=== PATIENT | male | born 1985 | race Caucasian/White ===

== ENCOUNTER 2018-05-05 20:26 | Inpatient (IN) | payer OTHER ==
[2018-05-05] MEDS ORDERED: HYDROmorphONE/DILAUDID 2 MG/ML INJ IVP ONE (20:34)
[2018-05-05] MEDS ORDERED: ONDANSETRON 4 MG/2 ML VIAL IVP ONE (20:34)
[2018-05-05] MEDS ORDERED: HYDROmorphONE/DILAUDID 1 MG/ML INJ ONE (20:43)
[2018-05-05] MEDS ORDERED: NS 1,000 ML IV ONE (20:50)
[2018-05-05] MEDS ORDERED: HYDROmorphONE/DILAUDID 1 MG/ML INJ IVP ONE (20:51)
[2018-05-05] MEDS ORDERED: fentaNYL 100 MCG/2 ML INJ IVP ONE (21:16)
[2018-05-05] MEDS ORDERED: fentaNYL 100 MCG/2 ML INJ ONE ×2 (21:19→22:43)
--- NOTE | 2018-05-05 21:31 | EDPHY ---
H & P Stated Complaint: fell while hiking [facility], felt pop in right lower leg, unable to walk - Personal History Current Tetanus/Diphtheria Vaccine: Yes Current Tetanus Diphtheria and Acellular Pertussis (TDAP): Yes - Medical/Surgical History Hx Asthma: No Hx Chronic Respiratory Disease: No Hx Diabetes: No Hx Cardiac Disease: No Hx Renal Disease: No Hx Cirrhosis: No Hx Alcoholism: No Hx HIV/AIDS: No Hx Splenectomy or Spleen Trauma: No Other PMH: none - Social History Smoking Status: Never smoked Time Seen by Provider: 05/05/18 20:34 HPI/ROS: CHIEF COMPLAINT: Right tibia and fibula pain HISTORY OF PRESENT ILLNESS: 33-year-old male generally healthy arrives via ambulance, not a trauma activation, complaining of acute right tibia and fibula pain. He was hiking earlier today [facility], slipped on ice felt immediate pain. Unable to bear weight was extricated via mountain rescue services. Due to the location and current ice and snowing conditions this extrication took several hours. He was kept warm during this process. Only complaint is right tibia and fibula pain. There is no fall from height. He fell while he was hiking and slipped. No calcaneus or foot pain. No paresthesia. No straddle injury. No head injury. No back pain or injury. No pelvic pain or injury. Last oral intake was dinner last evening PRIMARY CARE PROVIDER: REVIEW OF SYSTEMS: 10 systems reviewed and negative with the exception of the elements mentioned in the history of present illness PAST MEDICAL/SURGICAL HISTORY: no anticoagulant use, no relevant medical/ surgical history SOCIAL HISTORY: denies alcohol use at time of incident PHYSICAL EXAM 1) GENERAL: Well-developed, well-nourished, alert and oriented. Appears uncomfortable. Answering questions appropriately. 2) HEAD: Normocephalic, atraumatic 3) HEENT: Pupils equal, round, reactive to light bilaterally. Negative Horners. Nasopharynx, oropharynx, clear. No deformity or angulation of nose. No septal hematoma. No rhinorrhea. No oral trauma. Ears bilaterally with normal tympanic membranes. No hemotympanum. No fluid or blood in the external auditory canal. No raccoon eyes. No Simental sign. Teeth are normally aligned with no gross malocclusion, TMJ bilaterally nontender, facial bones nontender including the zygomatic arch, maxilla mandible. 4) NECK: No cervical collar is on. Posterior cervical spine is nontender, no stepoff, no effusion. Full range of motion which does not elicit any midline cervical spine pain, no posterior midline tenderness, no step-off. 5) LUNGS: Clear to auscultation bilaterally, no wheezes, no rhonchi, no retractions. No obvious signs of trauma. No chest wall pain. No flaring, no grunting. Moving symmetrically. No crepitus. 6) HEART: [Regular rate and rhythm, 7) ABDOMEN: No guarding, no rebound, no focal tenderness, no peritoneal signs, no signs of trauma, no ecchymosis 8) MUSCULOSKELETAL: Right lower extremity: Noted deformity to the distal tibia with intact skin. DP and PT pulses are present and brisk with brisk capillary refill. Foot calcaneus and ankle nontender. Proximal fibula is tender to palpation. Soft compartments throughout. Intact skin. Soft compartments throughout. Knee nontender. Femur nontender Moving all extremities, no focal areas of tenderness, no obvious trauma. 9) BACK: No midline vertebral tenderness, no fluctuance, no step-off, no obvious trauma, no visual or palpable abnormality. 10) SKIN: No laceration. No abrasion DIFFERENTIAL DIAGNOSIS: In no particular order including but not limited to fracture, sprain, strain, dislocation, compartment syndrome (Holden,Satinder Shannan) Constitutional: Initial Vital Signs Temperature (C) 36.7 C 05/05/18 20:41 Heart Rate 81 05/05/18 20:41 Respiratory Rate 16 05/05/18 20:41 Blood Pressure 123/74 H 05/05/18 20:41 O2 Sat (%) 98 05/05/18 20:41 O2 Delivery Mode Room Air Allergies/Adverse Reactions: No Known Allergies Allergy (Unverified 05/05/18 20:45) Home Medications: Medication Instructions Recorded Rohto Eye Drops 1 drop EACHEYE PRN PRN 05/05/18 Medical Decision Making - Diagnostics Imaging Results: Imaging Impressions Ankle X-Ray 05/05/18 20:41 Impression: 1. Oblique fracture distal right tibial shaft with posterior lateral displacement and proximal displacement distal aspect but no angulation. 2. Oblique nondisplaced fracture proximal shaft right fibula. Tibia/Fibula X-Ray 05/05/18 20:41 Impression: 1. Oblique fracture distal right tibial shaft with posterior lateral displacement and proximal displacement distal aspect but no angulation. 2. Oblique nondisplaced fracture proximal shaft right fibula. Procedures: Procedure: Splint A posterior long leg Ortho Glass splint was applied by ER ict help desk technician. After application of the splint I returned and re-examined the patient. The splint was adequately immobilizing the joint and distal to the splint the patient's circulation and sensation were intact. Patient shows no signs of compartment syndrome. (Satinder Hatch) ED Course/Re-evaluation: Patient greeted on arrival. Clothing was wet and cold which was changed out upon arrival. Patient has no break in skin. He is neurovascular intact no evidence compartment syndrome upon arrival. Will obtain x-rays of the tibia and fibula. 9:30 p.m.: Consultation with MARGO Solorio with Dr. Joshua Dickey reviewed the patient's images and call me back. Patient remains NPO since dinner last evening. 9:38 p.m.: Consultation with MARGO Solorio, Dr. Joshua Dickey will take the patient operating room this evening.. Patient was also seen exam by Dr. Ro Mcdaniel in the ER. He remains neurovascularly intact. (Satinder Hatch) Other Provider: The patient was evaluated and managed by the Physician Computer Bookkeeper. I discussed the patient's presentation and course with the midlevel provider with them and agree with the evaluation. My co-signature indicates that I have reviewed this chart and I agree with the findings and plan of care as documented. I am the secondary supervising physician. (Ro Mcdaniel) - Data Points Laboratory Results: Laboratory Results 05/05/18 21:48 05/05/18 21:48 05/05/18 05/05/18 05/05/18 21:48 21:48 21:48 WBC 15.88 10^3/uL H 10^3/uL (3.80-9.50) RBC 4.52 10^6/uL 10^6/uL (4.40-6.38) Hgb 13.9 g/dL g/dL (13.7-17.5) Hct 42.0 % % (40.0-51.0) MCV 92.9 fL fL (81.5-99.8) MCH 30.8 pg pg (27.9-34.1) MCHC 33.1 g/dL g/dL (32.4-36.7) RDW 12.5 % % (11.5-15.2) Plt Count 295 10^3/uL 10^3/uL (150-400) MPV 9.4 fL fL (8.7-11.7) Neut % (Auto) 78.8 % H % (39.3-74.2) Lymph % (Auto) 13.2 % L % (15.0-45.0) Tama % (Auto) 6.9 % % (4.5-13.0) Eos % (Auto) 0.2 % L % (0.6-7.6) Baso % (Auto) 0.3 % % (0.3-1.7) Nucleat RBC Rel Count 0.0 % % (0.0-0.2) Absolute Neuts (auto) 12.53 10^3/uL H 10^3/uL (1.70-6.50) Absolute Lymphs (auto) 2.09 10^3/uL 10^3/uL (1.00-3.00) Absolute Monos (auto) 1.09 10^3/uL H 10^3/uL (0.30-0.80) Absolute Eos (auto) 0.03 10^3/uL 10^3/uL (0.03-0.40) Absolute Basos (auto) 0.04 10^3/uL 10^3/uL (0.02-0.10) Absolute Nucleated RBC 0.00 10^3/uL 10^3/uL (0-0.01) Immature Gran % 0.6 % % (0.0-1.1) Immature Gran # 0.10 10^3/uL 10^3/uL (0.00-0.10) PT 14.7 SEC SEC (12.0-15.0) INR 1.13 (0.83-1.16) APTT 25.9 SEC SEC (23.0-38.0) Sodium 140 mEq/L mEq/L (135-145) Potassium 3.9 mEq/L mEq/L (3.5-5.2) Chloride 109 mEq/L mEq/L (97-110) Carbon Dioxide 24 mEq/l mEq/l (22-31) Anion Gap 7 mEq/L mEq/L (6-14) BUN 16 mg/dL mg/dL (7-23) Creatinine 0.9 mg/dL mg/dL (0.7-1.3) Estimated GFR > 60 Glucose 85 mg/dL mg/dL (70-100) Calcium 8.7 mg/dL mg/dL (8.5-10.4) Medications Given: Discontinued Medications Fentanyl (Sublimaze) 100 mcg IVP EDNOW ONE Stop: 05/05/18 21:17 Last Admin: 05/05/18 21:20 Dose: 100 mcg Hydromorphone HCl (Dilaudid) 1 mg IVP EDNOW ONE Stop: 05/05/18 20:35 Last Admin: 05/05/18 20:35 Dose: 1 mg Hydromorphone HCl (Dilaudid) 1 mg IVP EDNOW ONE Stop: 05/05/18 20:52 Last Admin: 05/05/18 20:56 Dose: 1 mg Sodium Chloride (Ns) 1,000 mls @ 0 mls/hr IV ONCE ONE PRN Reason: Wide Open Stop: 05/05/18 20:51 Last Admin: 05/05/18 21:37 Dose: Not Given Cefazolin Sodium/Dextrose (Ancef) 100 mls @ 200 mls/hr IV EDNOW ONE PRN Reason: Protocol Stop: 05/05/18 22:34 Last Admin: 05/05/18 22:13 Dose: 100 mls Ondansetron HCl (Zofran) 4 mg IVP EDNOW ONE Stop: 05/05/18 20:35 Last Admin: 05/05/18 20:35 Dose: 4 mg Departure - Departure Disposition: [facility] Inpatient Acute Clinical Impression: Hiking on level or elevated terrain Fracture of right tibia and fibula Qualifiers: Encounter type: initial encounter Fracture type: closed Qualified Code(s): S82.201A - Unspecified fracture of shaft of right tibia, initial encounter for closed fracture Fall from slipping on ice Qualifiers: Encounter type: initial encounter Qualified Code(s): W00.9XXA - Unspecified fall due to ice and snow, initial encounter Condition: Fair
[2018-05-05 22:05] LABS: PLATELET COUNT 295 10^3/uL (150-400)
[2018-05-05] MEDS ORDERED: ceFAZolin 2 GM/DEXTROSE 100 ML IV ONE (22:05)
--- NOTE | 2018-05-05 22:09 | PDCONSULT ---
Grid Trimmer Note: ORTHOPEDIC SURGERY CONSULT NOTE SUBJECTIVE: Patient presented to [facility] ER after slipping and falling while hiking, followed by immediate pain and inability to bear weight. X-rays showed displaced right distal tibia fracture with proximal right fibula fracture. He states he is in quite a bit of pain. He denies any numbness or tingling. He is overall healthy individual with no noted drug allergies, and no major medical issues noted to me. OBJECTIVE: RLE No open wounds. Palpable tibia deformity. Compartments soft. Pain to palpation over proximal fibula and distal tibia. Wiggles toes well. Distal neurovasculature intact. ASSESSMENT: Right, Distal Tibia fracture, displaced Right, Proximal fibula fracture, displaced PLAN: Admit patient to ortho service ORIF Right distal Tibia tonight (as soon as OR available) Surgery was discussed with patient in detail including risks and benefits. Consent for surgery was signed by patient. Dr. Dickey has seen patient and will be the surgeon. Osmin Bojorquez PA-C
[2018-05-05] MEDS ORDERED: D5W 1/2 NS 1,000 ML IV SCH (22:15)
[2018-05-05] MEDS ORDERED: BUPIVACAINE 0.5% 30 ML SDV ONE (22:16)
[2018-05-05 22:19] LABS: INR 1.13 (0.83-1.16); PROTIME(PATIENT) 14.7 SEC (12.0-15.0)
[2018-05-05] MEDS ORDERED: ROCURONIUM 100 MG/10 ML VIAL ONE (22:44)
[2018-05-05] MEDS ORDERED: PROPOFOL 200 MG/20 ML VIAL ONE (22:44)
[2018-05-05] MEDS ORDERED: DEXAMETHASONE 4 MG/ML VIAL ONE (22:46)
--- NOTE | 2018-05-05 22:47 | PDANEPAE ---
ANE Past Medical History - Cardiovascular History Hx Hypertension: No Hx Arrhythmias: No Hx Chest Pain: No Hx Coronary Artery / Peripheral Vascular Disease: No Hx CHF / Valvular Disease: No Hx Palpitations: No - Pulmonary History Hx COPD: No Hx Asthma/Reactive Airway Disease: No Hx Recent Upper Respiratory Infection: No Hx Oxygen in Use at Home: No Hx Sleep Apnea: No - Endocrine History Hx Diabetes: No Hypothyroid: No Hyperthyroid: No Obesity: no - GI History GERD: no Hx Gastrointestinal Disorders: No - Surgical History Prior Surgeries: wisdom teeth ANE Review of Systems Review of Systems: - Exercise capacity Exercise capacity: >=4 METS ANE Patient History - Allergies Allergies/Adverse Reactions: No Known Allergies Allergy (Unverified 05/05/18 20:45) - Home Medications Home Medications: Rohto Eye Drops 1 drop EACHEYE PRN PRN 05/05/18 [Last Taken Unknown] - NPO status NPO Since - Liquids (Date): 05/05/18 NPO Since - Liquids (Time): 15:00 NPO Since - Solids (Date): 05/04/18 NPO Since - Solids (Time): 19:00 - Anes Hx Anes Hx: no prior problems - Smoking Hx Smoking Status: Never smoked - Alcohol Use Alcohol Use: Occasionally - Family Anes Hx Family Anes Hx: neg - N/A ANE Labs/Vital Signs - Labs Result Diagrams: 05/05/18 21:48 05/05/18 21:48 - Vital Signs Blood Pressure: 101/68 Heart Rate: 86 Respiratory Rate: 16 O2 Sat (%): 97 Height: 175.26 cm Weight: 81.647 kg ANE Physical Exam - Airway Neck exam: FROM Mallampati Score: Class 2 Mouth exam: normal dental/mouth exam, pool - Pulmonary Pulmonary: no respiratory distress, no rales or rhonchi, clear to auscultation - Cardiovascular Cardiovascular: regular rate and rhythym, no murmur, rub, or gallop - ASA Status ASA Status: I, E ANE Anesthesia Plan Anesthesia Plan: general endotracheal anesthesia Total IV Anesthesia: No
[2018-05-05] MEDS ORDERED: LIDOCAINE 2% 5 ML SDV ONE (22:50)
[2018-05-05] MEDS ORDERED: KETOROLAC 30 MG/1 ML SDV ONE (22:50)
[2018-05-05] MEDS ORDERED: LR 500 ML IV PRN (23:08)
[2018-05-05] MEDS ORDERED: ONDANSETRON 4 MG/2 ML VIAL IVP PRN (23:08)
[2018-05-05] MEDS ORDERED: ACETAMINOPHEN 500 MG TAB PO PRN (23:08)
[2018-05-05] MEDS ORDERED: HYDROmorphONE/DILAUDID 2 MG/ML INJ IVP PRN (23:08)
[2018-05-05] MEDS ORDERED: PROMETHAZINE HCL 25 MG/ML INJ IVP PRN (23:08)
[2018-05-05] MEDS ORDERED: PHENYLEPHRINE HCL 100 MCG/ML SYR IVP PRN (23:08)
[2018-05-05] MEDS ORDERED: oxyCODONE IR 5 MG TAB PO PRN (23:08)
[2018-05-05] MEDS ORDERED: fentaNYL 100 MCG/2 ML INJ IVP PRN (23:08)
[2018-05-05] MEDS ORDERED: MEPERIDINE 25 MG/0.5 ML AMP IVP PRN (23:08)
[2018-05-05] MEDS ORDERED: HYDROCODONE/APAP 5/325 TAB PO PRN (23:08)
[2018-05-05] MEDS ORDERED: NALOXONE HCL 0.4 MG/ML INJ IVP PRN (23:08)
[2018-05-06] MEDS ORDERED: SUGAMMADEX SODIUM 200 MG/2 ML VIAL IVP ONE (00:12)
[2018-05-06] MEDS ORDERED: fentaNYL 100 MCG/2 ML INJ ONE (00:14)
[2018-05-06] MEDS ORDERED: PROMETHAZINE HCL 25 MG/ML INJ IVP PRN (00:40)
[2018-05-06] MEDS ORDERED: ONDANSETRON DISINTEGRATING 4 MG TAB PO PRN (00:40)
[2018-05-06] MEDS ORDERED: TEMAZEPAM 15 MG CAP PO PRN (00:40)
[2018-05-06] MEDS ORDERED: ONDANSETRON 4 MG/2 ML VIAL IVP PRN (00:40)
[2018-05-06] MEDS ORDERED: PROMETHAZINE HCL 25 MG SUPPR PR PRN (00:40)
[2018-05-06] MEDS ORDERED: CYCLOBENZAPRINE 10 MG TAB PO PRN (00:40)
[2018-05-06] MEDS ORDERED: diphenhydrAMINE 25 MG CAP PO PRN (00:40)
[2018-05-06] MEDS ORDERED: DIPHENOXYLATE/ATROPINE LOMOTIL 1 TAB PO PRN (00:40)
[2018-05-06] MEDS ORDERED: METOCLOPRAMIDE 10 MG/2 ML VIAL IVP PRN (00:40)
[2018-05-06] MEDS ORDERED: ceFAZolin 2 GM/DEXTROSE 100 ML IV ONE (00:57)
[2018-05-06] MEDS ORDERED: D5W 1/2 NS 1,000 ML IV SCH (00:57)
[2018-05-06] MEDS ORDERED: LR 1,000 ML IV SCH (01:00)
--- NOTE | 2018-05-06 01:29 | POSTANESTH ---
Post Anesthetic Evaluation Cardiovascular Status: Normal, Stable Respiratory Status: Normal, Stable Level of Consciousness/Mental Status: Can Participate in Eval Pain Control: Adequate, Prn Tx Ordered Nausea/Vomiting Control: Adequate, Prn Tx Ordered Complications Possibly Related to Anesthesia: None Noted
[2018-05-06] MEDS: oxyCODONE IR 5 MG TAB PO PRN ×3 (02:26→14:40)
--- NOTE | 2018-05-06 05:56 | GOP ---
DATE OF OPERATION: 05/06/2018 SURGEON: Joshua Dickey MD MANAGER STRATEGIC: Osmin Bojorquez. ANESTHESIA: General. PREOPERATIVE DIAGNOSIS: Right tibia and fibular shaft fractures. POSTOPERATIVE DIAGNOSIS: Right tibia and fibular shaft fractures. PROCEDURE PERFORMED: Open reduction, internal fixation, right tibial shaft fracture. FINDINGS: DESCRIPTION OF PROCEDURE: The patient was taken to the operating room, administered general anesthes ia, placed in supine position. The right lower extremity was prepped and draped in normal sterile fa shion. Esmarch exam was performed followed by elevation of thigh cuff to 275 mmHg pressure. Anterior incision was made 1 cm lateral to the tibial crest. It was carried through dermal and subcu taneous tissues. Sharp dissection performed down to the fascia; this was divided. The anterior tibi amita was reflected off the tibia. The fracture was exposed; it was thoroughly lavaged. The bone end s were cleaned up. We then reapproximated the fracture and secured it with a tenaculum clamp. The plate was then bent u sing the plate benders to fit the anterior lateral aspect of the tibia. We elected to use a large DC P-type plate. The plate was secured with 4.5 cortical screws. An interfragmentary screw was used ac ross the fracture line to get anatomic fixation. This was overdrilled with a 4.5 proximal cortex dri ll and a 3.2 distal cortex drill. It was tapped and then the screw was placed. The remaining screws were then placed proximally and distally. Irrigation performed with normal saline. The incision was closed with 2-0 Vicryl in the subcutaneous tissues, followed by 3-0 Ethilon in the d ermis. A sterile compression dressing was applied, followed by a posterior splint. The patient tolerated the procedure well and was transferred back to the recovery room in stable cond ition. No operative complications. COMPLICATIONS: None. /[id number]/MODL
[2018-05-06] MEDS ORDERED: ceFAZolin 2 GM/DEXTROSE 100 ML IV SCH (06:00)
[2018-05-06] MEDS: ACETAMINOPHEN 325 MG TAB PO SCH ×2 (06:03→11:53)
[2018-05-06] MEDS: KETOROLAC 15 MG/1 ML SDV IVP SCH ×2 (06:41→11:53)
--- NOTE | 2018-05-06 07:08 | PDMN ---
Medical Necessity Medical necessity: Pt meets inpt criteria per MD order and [id number], Tibia/ Fibula Shaft Fracture, Closed or Open Reduction. 33 y/o presented to ED after falling while hiking w/displaced R distal tibia fracture, displaced R proximal fibula fracture, required surgical intervention: admitted for ORIF, R tibial shaft fracture and post-op care.
--- NOTE | 2018-05-06 08:28 | SOAPPROG ---
SOAP Progress Note Assessment/Plan: Assessment: POD #1 s/p Right Distal Tibia ORIF Plan: He appears to be doing well following surgery. Pain has been well controlled with current medications. He will meet with PT/OT today and Case Management. Use of Crutches with No Weight Bearing RLE He will keep cast/dressing applied until seen for his post op appointment. Drain can be removed today. DVT Prophylaxis: EC ASA 325mg BID for 2 weeks Discharge: Possible tonight 05/06 if progressing well with PT/OT 05/06/18 08:25 Subjective: States his pain is 4/10 currently. Denies any SOB, CP, N/V currently. Objective: Vital Signs Temp Pulse Resp BP Pulse Ox 36.9 C 68 14 83/48 L 91 L 05/06/18 07:46 05/06/18 07:46 05/06/18 07:46 05/06/18 07:46 05/06/18 07:46 05/05/18 05/06/18 05/07/18 05:59 05:59 05:59 Intake Total 2009 160 Output Total 10 80 Balance 1999 80 PT 14.7 SEC (12.0-15.0) 05/05/18 21:48 INR 1.13 (0.83-1.16) 05/05/18 21:48 PHYSICAL EXAM RLE Splint/Dressing intact, clean and dry wiggles toes well. Distal Neurovasculature intact. Drain present with 20cc blood present. - Pending Discharge Pending Discharge Within 24 Hours: Yes Pending Discharge Date: 05/06/18 Pending Discharge Time: 18:00 (He may discharge tonight if progressing well) ICD10 Worksheet Patient Problems: Problems Problem Status Onset Fall from slipping on ice Acute Fracture of right tibia and fibula Acute Hiking on level or elevated terrain Acute
--- NOTE | 2018-05-06 08:40 | PDDCSUM ---
Discharge Summary Discharge Summary: DISCHARGE SUMMARY Orthopedic Surgery Admission Date: 05/05/18 Discharge date: 05/06/18 Admission Diagnosis: Right Distal Tibia Fracture, displaced. RIght Proximal Fibula Fracture Primary Procedure: ORIF Right Distal Tibia Surgeon: Dr. Joshua Dickey MD HOSPITAL COURSE Patient did very well following surgery with no medical issues during stay. He advanced to Oral food/water without issue. Pain has been well controlled with medication. DVT prophylaxis through mobilization, Aspirin, and SCDs. Splint/ Dressing was checked daily without issue. He met with PT/OT during his stay. MEDICATIONS: Oxycodone IR for pain EC Aspirin 325mg daily for DVT prophylaxis. No current home medications reported. FOLLOW-UP He will follow-up in 10-14 days at [facility] for re-evaluation. He will call clinic with any issues or concerns. Osmin Bojorquez PA-C for attending Dr. Dickey (Orthopedic Surgeon).
[2018-05-06] MEDS ORDERED: ASPIRIN EC 325 MG TAB PO SCH (09:00)
--- NOTE | 2018-05-06 11:25 | ASMTLACE ---
CHRISTIANE Length of stay for Answers: 1 day current admission Acuity / Level of Answers: Yes Care: Did the patient have an inpatient admission? # of Emergency department Answers: 1-2 visits in the last 6 months Score: 5 Date Signed: 05/06/2018 11:24 AM Electronically Signed By:Emily Moise RN
--- NOTE | 2018-05-06 11:27 | ASMTCMCOM ---
CM Note CM Note Notes: Pt admitted to hospital after fall at [facility], pt was hiking and slipped on ice. Per RN, pt will dc home w/support of his girlfriend. CM available for any changes. DC Plan: Independent Date Signed: 05/06/2018 11:26 AM Electronically Signed By:Emily Moise RN
[2018-05-06 12:53] VITALS: BP 110/46
[2018-05-06] MEDS ORDERED: FAMOTIDINE 20 MG TAB PO SCH (21:00)
== END 2018-05-06 15:41 | disposition home or self-care (01) | DRG 494 ==
LOC: UNDOADMOB 21:38 → FSGY 23:00 → F3N 05-06 01:02 → OBSVTOIN 05-06 01:02 → F3N 05-06 01:47
PROVIDERS: ADMIT Orthopaedic Surgery Sports Medicine; ATTEND Orthopaedic Surgery Sports Medicine
PROC: 0QSH04Z Reposition Left Tibia with Internal Fixation Device, Open Approach (ICD-10-PCS; principal; 2018-05-06)
DX: S82.202A Unspecified fracture of shaft of left tibia, initial encounter for closed fracture (principal); S82.402A Unspecified fracture of shaft of left fibula, initial encounter for closed fracture; W00.0XXA Fall on same level due to ice and snow, initial encounter; Y93.01 Activity, walking, marching and hiking; Y92.828 Other wilderness area as the place of occurrence of the external cause
CPT/HCPCS: 96374; 97161-GP; 97165-GO; C1713; J0690; J1100; J1170; J1885; J2270; J2405; J2704; J3010